=== PATIENT | female | born 1945 | race Caucasian/White ===

== ENCOUNTER 2017-11-13 11:55 | Day surgery (SDC) | payer MEDICARE, BC ==
[2017-11-11 13:47] LABS: BASOPHILS % (AUTO) 0.7 % (0-1); EOSINOPHILS # (AUTO) 0.2 X10'3 (0-0.9); EOSINOPHILS % (AUTO) 2.9 % (0-6); HEMATOCRIT 30.1 % (35.0-45.0); HEMOGLOBIN 10.1 g/dl (12.0-16.0); LYMPHOCYTES # (AUTO) 1.8 X10'3 (1.1-4.8); LYMPHOCYTES % (AUTO) 26.9 % (21-51); MEAN CORPUSCULAR HEMOGLOBIN 33.2 PG (27.0-31.0); MEAN CORPUSCULAR HGB CONC 33.5 % (33.0-36.5); MEAN PLATELET VOLUME 8.4 FL (7.4-10.4); MONOCYTES # (AUTO) 0.5 X10'3 (0-0.9); MONOCYTES % (AUTO) 7.2 % (2-12); NEUTROPHILS # (AUTO) 4.1 X10'3 (1.8-7.7); NEUTROPHILS % (AUTO) 62.3 % (42-75); PLATELET COUNT 257 X10'3 (140-440); RED BLOOD COUNT 3.04 X10'6 (4.20-5.60); RED CELL DISTRIBUTION WIDTH 15.2 % (11.5-14.5); WHITE BLOOD COUNT 6.5 X10'3 (4.5-11.0)
[2017-11-11 13:58] LABS: ALBUMIN 3.8 G/DL (3.4-5.0); ANION GAP 7 (8-16); BLOOD UREA NITROGEN 22 MG/DL (7-18); CHLORIDE 106 MMOL/L (99-107); GLUCOSE 111 MG/DL (70-104); POTASSIUM 3.9 MMOL/L (3.5-5.1); SODIUM 141 MMOL/L (135-145); TOTAL CARBON DIOXIDE 27.8 MMOL/L (24-32); eGFR 55 ML/MIN
[2017-11-11 13:59] LABS: INR 0.9 INR; PARTIAL THROMBOPLASTIN TIME 27 SECONDS (22-32); PROTHROMBIN TIME 9.8 SECONDS (9.0-12.0)
[~2017-11-13] VITALS: Ht 162.6 cm; Wt 65.1 kg
[2017-11-13] VITALS (8 sets, daily range): BP systolic 112–147; BP diastolic 45–60
[~2017-11-13 11:55] MED LIST: ACET650T2 PO; ASPI-1053 PO; ATOR80TA PO; EST1T PO; FERR134T2 PO; FOLI-43 PO; KEN0.1O TP; LISI-600 PO; METH2.5T17 PO; METO25TA6 PO; MULT-920; NAPR220T67 PO; NIFE30TA95 PO; NITR0.4T48 SL; RANO500T3 PO; TICA90TA2 PO
[2017-11-13] MEDS ORDERED: diphenhydrAMINE 25mg capsule PO PRN (12:20)
[2017-11-13] MEDS ORDERED: LORazepam 0.5 MG tablet PO PRN (12:20)
[2017-11-13] MEDS ORDERED: normal saline 1000ml 1,000 ML IV SCH (12:20)
[2017-11-13] MEDS ORDERED: fentaNYL/PF 50MCG/1 ML 2ML syringe ONE (12:28)
[2017-11-13] MEDS ORDERED: iohexol 350MG/ML 100ml bottle IV ONE (12:29)
[2017-11-13] MEDS ORDERED: LIDOcaine 1%/PF (10mg/ml) 5ml vial ONE (12:29)
[2017-11-13] MEDS ORDERED: midazolam 2 mg/2 ml injection ONE (12:29)
[2017-11-13] MEDS ORDERED: FURO-150 PO (12:40)
[2017-11-13] MEDS ORDERED: iohexol 350 MG/ML 50ML vial IV ONE (13:29)
[2017-11-13] MEDS ORDERED: proCHLORperazine 10 MG/2 ml inj IV PRN (14:05)
[2017-11-13] MEDS ORDERED: OXAZEpam 15mg capsule PO PRN (14:05)
[2017-11-13] MEDS ORDERED: HYDROcodone/acetaminophen 5mg/325mg tablet PO PRN (14:05)
[2017-11-13] MEDS ORDERED: ondansetron/PF 4mg/2ml inj IV PRN (14:05)
[2017-11-13] MEDS ORDERED: HYDROcodone/acetaminophen 10/325mg tab PO PRN (14:05)
== END 2017-11-13 16:15 | disposition home or self-care (01) ==
LOC: SSTAY O 11:55
PROVIDERS: ATTEND Internal Medicine Interventional Cardiology
DX: I25.110 Atherosclerotic heart disease of native coronary artery with unstable angina pectoris (principal); I10 Essential (primary) hypertension; I65.23 Occlusion and stenosis of bilateral carotid arteries; M81.0 Age-related osteoporosis without current pathological fracture; M06.9 Rheumatoid arthritis, unspecified; K21.9 Gastro-esophageal reflux disease without esophagitis; E78.5 Hyperlipidemia, unspecified; M19.90 Unspecified osteoarthritis, unspecified site; Z79.82 Long term (current) use of aspirin; Z85.42 Personal history of malignant neoplasm of other parts of uterus; Z86.79 Personal history of other diseases of the circulatory system; Z90.710 Acquired absence of both cervix and uterus; Z98.890 Other specified postprocedural states; Z87.891 Personal history of nicotine dependence; Z90.89 Acquired absence of other organs; Z90.49 Acquired absence of other specified parts of digestive tract; Z72.89 Other problems related to lifestyle; Z95.1 Presence of aortocoronary bypass graft; Z95.5 Presence of coronary angioplasty implant and graft; Z88.0 Allergy status to penicillin; Z88.6 Allergy status to analgesic agent; Z79.899 Other long term (current) drug therapy
CPT/HCPCS: 36415; 80048; 85025; 85610; 85730; 93005; 93459; 99152; 99153; A6257; C1769; J1644; J2001; J2250; J3010; J7030; Q0163; Q9967; A4620

== ENCOUNTER 2018-09-08 10:55 | Outpatient (CLI) | payer MEDICARE, BC ==
[~2018-09-08 10:55] MED LIST changes: -FERR134T2 PO; +FURO-150 PO; -RANO500T3 PO; -TICA90TA2 PO
== END 2018-09-08 23:59 | disposition home or self-care (01) ==
LOC: VAS 10:55
PROVIDERS: ATTEND Surgery
DX: Z01.810 Encounter for preprocedural cardiovascular examination (principal); I10 Essential (primary) hypertension; Z95.1 Presence of aortocoronary bypass graft; Z98.61 Coronary angioplasty status; Z90.710 Acquired absence of both cervix and uterus; Z79.82 Long term (current) use of aspirin; Z87.891 Personal history of nicotine dependence
CPT/HCPCS: 93970

== ENCOUNTER 2019-09-14 14:07 | Day surgery (SDC) | payer MEDICARE, BC ==
[~2019-09-14] VITALS: Ht 162.6 cm; Wt 62.4 kg
[2019-09-14] MEDS ORDERED: diphenhydrAMINE 25mg capsule PO PRN (14:40)
[2019-09-14] MEDS ORDERED: normal saline 1,000 ML IV SCH (14:40)
[2019-09-14] MEDS ORDERED: LORazepam 0.5 MG tablet PO PRN (14:40)
[2019-09-14] MEDS ORDERED: ISOS60TA4 PO (14:53)
[2019-09-14 15:00] VITALS: BP 141/63
[2019-09-14 15:26] LABS: BASOPHILS # (AUTO) 0.1 X10'3 (0-0.2); BASOPHILS % (AUTO) 0.9 % (0-1); EOSINOPHILS # (AUTO) 0.2 X10'3 (0-0.9); EOSINOPHILS % (AUTO) 2.5 % (0-6); HEMATOCRIT 34.4 % (35.0-45.0); HEMOGLOBIN 11.7 g/dl (12.0-16.0); LYMPHOCYTES # (AUTO) 2.3 X10'3 (1.1-4.8); LYMPHOCYTES % (AUTO) 32.5 % (21-51); MEAN CORPUSCULAR HEMOGLOBIN 34.3 PG (27.0-31.0); MEAN CORPUSCULAR VOLUME 100.9 FL (78-98); MEAN PLATELET VOLUME 8.1 FL (7.4-10.4); MONOCYTES # (AUTO) 0.6 X10'3 (0-0.9); MONOCYTES % (AUTO) 7.8 % (2-12); NEUTROPHILS % (AUTO) 56.3 % (42-75); PLATELET COUNT 275 X10'3 (140-440); RED BLOOD COUNT 3.41 X10'6 (4.20-5.60); RED CELL DISTRIBUTION WIDTH 12.5 % (11.5-14.5); WHITE BLOOD COUNT 7.1 X10'3 (4.5-11.0)
[2019-09-14 15:32] LABS: ALBUMIN 3.9 G/DL (3.4-5.0); ANION GAP 8 (8-16); BLOOD UREA NITROGEN 18 MG/DL (7-18); BUN/CREATININE RATIO 18.6 (6.6-38.0); CALCIUM 9.4 MG/DL (8.5-10.1); CHLORIDE 101 MMOL/L (99-107); CREATININE 0.97 MG/DL (0.40-0.90); GLUCOSE 94 MG/DL (70-104); POTASSIUM 4.2 MMOL/L (3.5-5.1); SODIUM 135 MMOL/L (135-145); TOTAL CARBON DIOXIDE 26.3 MMOL/L (24-32); eGFR 56 ML/MIN
[2019-09-14 15:42] LABS: PARTIAL THROMBOPLASTIN TIME 28 SECONDS (22-32)
[2019-09-14] MEDS ORDERED: iohexol 350MG/ML 100ml bottle IV ONE ×2 (17:23→18:14)
[2019-09-14] MEDS ORDERED: LIDOcaine 1% (10mg/ml)w/preservative injection 20ml MDV ONE (17:23)
[2019-09-14] MEDS ORDERED: fentaNYL/PF 50MCG/1 ML 2ML syringe ONE (17:59)
[2019-09-14] MEDS ORDERED: midazolam 2 mg/2 ml injection ONE (17:59)
[2019-09-14] MEDS ORDERED: nitroGLYCERIN 0.4mg SUBLingual tab SL ONE (18:10)
[2019-09-14] MEDS ORDERED: heparin 1,000unit/ml 10ml vial 10 ML ONE (18:29)
[2019-09-14 19:21] VITALS: BP 160/86
[2019-09-14 19:30] VITALS: BP 167/83
[2019-09-14 19:45] VITALS: BP 173/87
[2019-09-14] MEDS ORDERED: proCHLORperazine 10 MG/2 ml inj IV PRN (19:55)
[2019-09-14] MEDS ORDERED: ondansetron/PF 4mg/2ml inj IV PRN (19:55)
[2019-09-14] MEDS ORDERED: HYDROcodone/acetaminophen 5mg/325mg tablet PO PRN (19:55)
[2019-09-14] MEDS ORDERED: OXAZEpam 15mg capsule PO PRN (19:55)
[2019-09-14] MEDS ORDERED: nitroGLYCERIN 0.4mg SUBLingual tab SL PRN (19:55)
[2019-09-14] MEDS ORDERED: HYDROcodone/acetaminophen 10/325mg tab PO PRN (19:55)
[2019-09-14 20:00] VITALS: BP 161/83
== END 2019-09-14 20:45 | disposition home or self-care (01) ==
LOC: SSTAY O 14:07
PROVIDERS: ATTEND Internal Medicine Interventional Cardiology
DX: I25.110 Atherosclerotic heart disease of native coronary artery with unstable angina pectoris (principal); I10 Essential (primary) hypertension; M06.9 Rheumatoid arthritis, unspecified; D64.9 Anemia, unspecified; Z79.82 Long term (current) use of aspirin; Z79.899 Other long term (current) drug therapy; Z85.42 Personal history of malignant neoplasm of other parts of uterus; Z88.8 Allergy status to other drugs, medicaments and biological substances; Z88.0 Allergy status to penicillin; Z88.5 Allergy status to narcotic agent; E78.5 Hyperlipidemia, unspecified; Z87.891 Personal history of nicotine dependence; Z95.1 Presence of aortocoronary bypass graft; Z79.01 Long term (current) use of anticoagulants
CPT/HCPCS: 36415; 80048; 85025; 85610; 85730; 93005; 93459; 99152; 99153; C1769; J1644; J2001; J2250; J3010; J7030; Q0163; Q9967; A4620; A6258; C1760

== ENCOUNTER 2024-10-11 08:14 | Inpatient (IN) | payer MEDICARE, OTHER ==
[~2024-10-11] VITALS: Ht 160 cm; Wt 51.9 kg
[2024-10-11] VITALS (34 sets, daily range): BP systolic 58–115; BP diastolic 25–77; PULSE 66–131; RESP 10–22; O2SAT 91–100
[~2024-10-11 08:14] MED LIST changes: -ASPI-1053 PO; +ATOR-429 PO; -ATOR80TA PO; +CLOB15OI21 TOP; -EST1T PO; -FOLI-43 PO; +FOLI1TAB27 PO; -FURO-150 PO; +ISOS60TA71 PO; -KEN0.1O TP; -LISI-600 PO; +LOP25T PO; -METH2.5T17 PO; -METO25TA6 PO; -MULT-920; +MULT-920 PO; -NAPR220T67 PO; -NIFE30TA95 PO
[2024-10-11] MEDS ORDERED: PHENYLephrine 10mg/ml 5ml injection IV ONE (10:05)
[2024-10-11] MEDS ORDERED: propofol inj 20 ML IV ONE ×2 (10:40)
[2024-10-11] MEDS ORDERED: nitroGLYCERIN 0.4mg/hour patch TD ONE (10:54)
[2024-10-11] MEDS ORDERED: ePHEDrine 50MG/ML INJ. ONE (10:55)
[2024-10-11] MEDS ORDERED: nitroGLYCERIN 0.4mg SUBLingual tab SL PRN (11:00)
[2024-10-11] MEDS ORDERED: nitroGLYCERIN 0.4mg SUBLingual tab SL ONE (11:03)
[2024-10-11] MEDS ORDERED: simethicone 40mg/0.6ml oral drops 30ml ONE (11:19)
[2024-10-11] MEDS ORDERED: morphine 4 MG/ML inj SYRINge ONE (11:25)
[2024-10-11] MEDS ORDERED: midazolam 1 mg/ML 2ml injection ONE (11:58)
[2024-10-11 12:02] LABS: BASOPHILS % (AUTO) 0.1 % (0-1); EOSINOPHILS # (AUTO) 0.1 X10'3 (0-0.9); EOSINOPHILS % (AUTO) 0.5 % (0-6); HEMATOCRIT 27.3 % (35.0-45.0); HEMOGLOBIN 9.1 g/dl (12.0-16.0); LYMPHOCYTES % (AUTO) 21.8 % (21-51); MEAN CORPUSCULAR HEMOGLOBIN 34.7 PG (27.0-31.0); MEAN CORPUSCULAR HGB CONC 33.2 g/dL (33.0-36.5); MEAN CORPUSCULAR VOLUME 104.3 FL (78-98); MEAN PLATELET VOLUME 8.7 FL (7.4-10.4); MONOCYTES # (AUTO) 0.8 X10'3 (0-0.9); NEUTROPHILS # (AUTO) 9.7 X10'3 (1.8-7.7); NEUTROPHILS % (AUTO) 71.6 % (42-75); PLATELET COUNT 179 X10'3 (140-440); RED BLOOD COUNT 2.61 X10'6 (4.20-5.60); RED CELL DISTRIBUTION WIDTH 14.4 % (11.5-14.5); WHITE BLOOD COUNT 13.6 X10'3 (4.5-11.0)
[2024-10-11 12:05] LABS: APTT 32 SECONDS (22-32); INR 1.1 INR; PROTHROMBIN TIME 11.1 SECONDS (9.0-12.0)
[2024-10-11 12:07] LABS: ALANINE AMINOTRANSFERASE 22 U/L (12-78); ALBUMIN 3.3 G/DL (3.4-5.0); ALBUMIN/GLOBULIN RATIO 1.1 (1.1-1.5); ALKALINE PHOSPHATASE 58 IU/L (46-116); ANION GAP 13 (8-16); ASPARTATE AMINO TRANSFERASE 26 U/L (10-37); BILIRUBIN,TOTAL 0.5 MG/DL (0.1-1.0); BLOOD UREA NITROGEN 26 MG/DL (7-18); BUN/CREATININE RATIO 21.3 (10.0-20.0); CALCIUM 8.3 MG/DL (8.5-10.1); CHLORIDE 106 MMOL/L (99-107); CREATININE 1.22 MG/DL (0.40-0.90); GLUCOSE 100 MG/DL (70-104); POTASSIUM 3.2 MMOL/L (3.5-5.1); SODIUM 138 MMOL/L (135-145); TOTAL CARBON DIOXIDE 19.4 MMOL/L (24-32); TOTAL PROTEIN 6.2 G/DL (6.4-8.2); eCRCL 30 ML/MIN; eGFR 43 ML/MIN
[2024-10-11] MEDS: aspirin 325mg tablet PO ONE (12:15)
[2024-10-11] MEDS ORDERED: morphine 2 MG/ML inj. syringe IV ONE (12:25)
[2024-10-11] MEDS: morphine 2 MG/ML inj. syringe IV PRN ×2 (12:31→20:04)
[2024-10-11] MEDS ORDERED: acetaminophen 325mg tablet PO PRN (13:40)
[2024-10-11] MEDS ORDERED: ondansetron/PF 4mg/2ml inj IV PRN (13:40)
[2024-10-11] MEDS ORDERED: normal saline 1000ml 1,000 ML IV SCH (13:40)
[2024-10-11] MEDS ORDERED: magnesium hydroxide 30ml (MOM) UD suspension PO PRN (13:40)
[2024-10-11] MEDS ORDERED: morphine 4 MG/ML inj SYRINge IV PRN (13:40)
[2024-10-11] MEDS: ringers solution, lacted 1,000 ML IV SCH (14:18)
[2024-10-11] MEDS: nitroGLYCERIN-Tridil 50MG/D5W 250 ML IV PRN (14:20)
[2024-10-11] MEDS: heparin 10,000 units/1 ML INJ IV ONE (14:24)
[2024-10-11] MEDS: MESSAGE TO NURSING IV ONE (14:25)
[2024-10-11] MEDS: heparin 25,000 UNIT/250ml bag 250 ML IV PRN (14:30)
[2024-10-11] MEDS: ringers solution, lacted 1,000 ML IV ONE (15:02)
[2024-10-11] MEDS ORDERED: ISOS30TA84 PO ×2 (15:23→20:11)
[2024-10-11] MEDS ORDERED: METO50TA16 PO (15:23)
[2024-10-11] MEDS ORDERED: EZET10TA48 PO (15:23)
[2024-10-11] MEDS ORDERED: AMLODIPINE PO (15:27)
[2024-10-11] MEDS ORDERED: BENAZEPRIL PO (15:27)
[2024-10-11] MEDS: nitroGLYCERIN 0.4mg SUBLingual tab SL PRN (18:08)
[2024-10-11] MEDS ORDERED: nitroGLYCERIN-Tridil 50MG/D5W 250 ML IV PRN (18:38)
[2024-10-11] MEDS: normal saline 1000ml 1,000 ML IV ONE (18:38)
[2024-10-11] MEDS: atorvastatin 20mg tablet PO SCH (21:30)
[2024-10-11] MEDS ORDERED: magnesium sulf-water 4G/100mL 100 ML IV PRN (22:35)
[2024-10-11] MEDS ORDERED: magnesium sulf-water 2g/50mL 50 ML IV PRN (22:35)
[2024-10-11] MEDS ORDERED: potassium Cl 20 mEq SR tablet PO PRN ×2 (22:35)
[2024-10-12] VITALS (32 sets, daily range): BP systolic 99–122; BP diastolic 39–60; PULSE 79–103; RESP 16–35; O2SAT 88–94
[2024-10-12 02:46] LABS: BASOPHILS % (AUTO) 0.1 % (0-1); EOSINOPHILS % (AUTO) 0.1 % (0-6); HEMATOCRIT 27.2 % (35.0-45.0); HEMOGLOBIN 9.2 g/dl (12.0-16.0); LYMPHOCYTES # (AUTO) 1.4 X10'3 (1.1-4.8); LYMPHOCYTES % (AUTO) 13.4 % (21-51); MEAN CORPUSCULAR HEMOGLOBIN 35.6 PG (27.0-31.0); MEAN CORPUSCULAR HGB CONC 33.7 g/dL (33.0-36.5); MEAN CORPUSCULAR VOLUME 105.5 FL (78-98); MEAN PLATELET VOLUME 8.5 FL (7.4-10.4); MONOCYTES # (AUTO) 0.6 X10'3 (0-0.9); MONOCYTES % (AUTO) 5.4 % (2-12); NEUTROPHILS # (AUTO) 8.6 X10'3 (1.8-7.7); PLATELET COUNT 173 X10'3 (140-440); RED BLOOD COUNT 2.57 X10'6 (4.20-5.60); RED CELL DISTRIBUTION WIDTH 14.1 % (11.5-14.5); WHITE BLOOD COUNT 10.6 X10'3 (4.5-11.0)
[2024-10-12 03:09] LABS: ALBUMIN 3.1 G/DL (3.4-5.0); ANION GAP 15 (8-16); BLOOD UREA NITROGEN 18 MG/DL (7-18); CHLORIDE 107 MMOL/L (99-107); CREATININE 0.82 MG/DL (0.40-0.90); GLUCOSE 81 MG/DL (70-104); POTASSIUM 3.7 MMOL/L (3.5-5.1); SODIUM 140 MMOL/L (135-145); TOTAL CARBON DIOXIDE 17.7 MMOL/L (24-32); eCRCL 45 ML/MIN; eGFR 67 ML/MIN
[2024-10-12] MEDS: heparin 10,000 units/1 ML INJ IV PRN (03:24)
[2024-10-12] MEDS: MESSAGE TO NURSING IV ONE ×5 (04:15→23:46)
[2024-10-12] MEDS: ezetimibe 10mg tablet PO SCH (07:58)
[2024-10-12] MEDS: K and/or MAG REPLACEMENT MC SCH (08:00)
[2024-10-12] MEDS: aspirin 325mg tablet, delayed-release (Ecotrin) PO SCH (09:46)
[2024-10-12] MEDS: furosemide 40mg/4ml inj IV ONE (10:50)
[2024-10-12] MEDS: pantoprazole 40 MG vial IV SCH (11:02)
[2024-10-12] MEDS: metoprolol tartrate 25mg tablet PO SCH (13:23)
[2024-10-12] MEDS: furosemide 40mg/4ml inj IV SCH (14:18)
[2024-10-12 18:47] LABS: PRO BRAIN NATRIURETIC PEPTIDE 27307 PG/ML (0-450)
[2024-10-12] MEDS: metoprolol tartrate 50mg tablet PO SCH (20:03)
[2024-10-12 20:53] LABS: ABG BASE EXCESS -7.1 mmol/L (-2.0-3.0); ABG OXYGEN SATURATION 90.4 % (94.0-98.0); ABG PCO2 (T) 21.8 mmHg (32.0-45.0); ABG PH (T) 7.459 (7.350-7.450); ALLEN'S TEST Modified; FCOHb 0.3 % (0.5-1.5); FHHb 9.5 % (0.0-5.0); FLOW 30 L/min; FMetHb 0.3 % (0.0-1.5); FO2Hb 89.9 % (94.0-98.0); MODE Vapotherm; PATIENT TEMPERATURE 37.5; TOTAL HEMOGLOBIN 9.9 G/dl (12.0-16.0)
[2024-10-13] VITALS (30 sets, daily range): BP systolic 93–126; BP diastolic 42–64; PULSE 76–99; RESP 24–41; O2SAT 89–99
[2024-10-13 04:26] LABS: BASOPHILS % (AUTO) 0.1 % (0-1); EOSINOPHILS % (AUTO) 0 % (0-6); HEMATOCRIT 26.6 % (35.0-45.0); LYMPHOCYTES # (AUTO) 1.1 X10'3 (1.1-4.8); LYMPHOCYTES % (AUTO) 8.4 % (21-51); MEAN CORPUSCULAR HEMOGLOBIN 34.9 PG (27.0-31.0); MEAN CORPUSCULAR HGB CONC 33.9 g/dL (33.0-36.5); MEAN PLATELET VOLUME 8.5 FL (7.4-10.4); MONOCYTES # (AUTO) 0.8 X10'3 (0-0.9); MONOCYTES % (AUTO) 6.1 % (2-12); NEUTROPHILS # (AUTO) 11.2 X10'3 (1.8-7.7); NEUTROPHILS % (AUTO) 85.4 % (42-75); PLATELET COUNT 186 X10'3 (140-440); RED BLOOD COUNT 2.58 X10'6 (4.20-5.60); RED CELL DISTRIBUTION WIDTH 13.9 % (11.5-14.5); WHITE BLOOD COUNT 13.2 X10'3 (4.5-11.0)
[2024-10-13 04:42] LABS: ALBUMIN 2.5 G/DL (3.4-5.0); ANION GAP 13 (8-16); BLOOD UREA NITROGEN 14 MG/DL (7-18); BUN/CREATININE RATIO 14.4 (10.0-20.0); CALCIUM 7.8 MG/DL (8.5-10.1); CHLORIDE 106 MMOL/L (99-107); CREATININE 0.97 MG/DL (0.40-0.90); GLUCOSE 109 MG/DL (70-104); MAGNESIUM 1.7 MG/DL (1.5-2.4); SODIUM 142 MMOL/L (135-145); TOTAL CARBON DIOXIDE 23.4 MMOL/L (24-32); eCRCL 39 ML/MIN; eGFR 56 ML/MIN
[2024-10-13 04:53] LABS: POTASSIUM 2.9 MMOL/L (3.5-5.1)
[2024-10-13] MEDS: MESSAGE TO NURSING IV ONE ×2 (05:24→12:30)
[2024-10-13] MEDS: potassium Cl 40MEQ/1/2NS 520ml 520 ML IV PRN (05:46)
[2024-10-13] MEDS: ALPRAZolam 0.25mg tablet PO PRN (11:23)
[2024-10-13] MEDS: potassium Cl 20 mEq SR tablet PO SCH (11:23)
[2024-10-13] MEDS: lactose-reduced food (Ensure Enlive) - 237ml bottle PO SCH (13:00)
[2024-10-13] MEDS: metoprolol tartrate 50mg tablet PO SCH (14:00)
[2024-10-13] MEDS: furosemide 40mg/4ml inj IV SCH (14:00)
[2024-10-13] MEDS: mag hydrox/Alum hydrox/simeth 30ml oral suspension PO PRN (15:49)
[2024-10-13] MEDS: enoxaparin 40mg/0.4ml syringe SUBCUT SCH (20:02)
[2024-10-14] VITALS (30 sets, daily range): BP systolic 13–140; BP diastolic 43–62; PULSE 73–84; RESP 17–35; O2SAT 91–100
[2024-10-14 03:52] LABS: BASOPHILS % (AUTO) 0.1 % (0-1); EOSINOPHILS % (AUTO) 0 % (0-6); HEMATOCRIT 28.3 % (35.0-45.0); HEMOGLOBIN 9.6 g/dl (12.0-16.0); LYMPHOCYTES # (AUTO) 1.4 X10'3 (1.1-4.8); LYMPHOCYTES % (AUTO) 10.5 % (21-51); MEAN CORPUSCULAR HEMOGLOBIN 35.3 PG (27.0-31.0); MEAN CORPUSCULAR VOLUME 103.9 FL (78-98); MEAN PLATELET VOLUME 8.5 FL (7.4-10.4); MONOCYTES % (AUTO) 7.4 % (2-12); NEUTROPHILS # (AUTO) 11.3 X10'3 (1.8-7.7); PLATELET COUNT 193 X10'3 (140-440); RED BLOOD COUNT 2.72 X10'6 (4.20-5.60); RED CELL DISTRIBUTION WIDTH 14.2 % (11.5-14.5); WHITE BLOOD COUNT 13.8 X10'3 (4.5-11.0)
[2024-10-14 04:00] LABS: ALBUMIN 2.4 G/DL (3.4-5.0); ANION GAP 4 (8-16); BLOOD UREA NITROGEN 17 MG/DL (7-18); CHLORIDE 108 MMOL/L (99-107); CREATININE 1.06 MG/DL (0.40-0.90); GLUCOSE 113 MG/DL (70-104); MAGNESIUM 2.1 MG/DL (1.5-2.4); POTASSIUM 4.9 MMOL/L (3.5-5.1); SODIUM 139 MMOL/L (135-145); TOTAL CARBON DIOXIDE 27.2 MMOL/L (24-32); eCRCL 36 ML/MIN; eGFR 50 ML/MIN
[2024-10-14 07:50] LABS: PRO BRAIN NATRIURETIC PEPTIDE 21857 PG/ML (0-450)
[2024-10-14 08:55] LABS: ABG HCO3 20.5 mmol/L (21.0-28.0); ABG OXYGEN SATURATION 99.2 % (94.0-98.0); ABG PCO2 (T) 27.8 mmHg (32.0-45.0); ABG PH (T) 7.485 (7.350-7.450); ABG PO2 (T) 167.7 mmHg (83.0-108.0); ALLEN'S TEST POSITIVE; FCOHb 0.3 % (0.5-1.5); FHHb 0.8 % (0.0-5.0); FMetHb 0.3 % (0.0-1.5); FO2Hb 98.6 % (94.0-98.0); MODE MASK - BIPAP; PATIENT TEMPERATURE 37.1; RESPIRATORY RATE 8 b/min; TOTAL HEMOGLOBIN 10.5 G/dl (12.0-16.0)
[2024-10-14 10:36] LABS: CHOLESTEROL 119 MG/DL (0-200); HDL CHOLESTEROL 59 MG/DL (35-60); LDL CHOLESTEROL 43 MG/DL (50-100); TRIGLYCERIDES 66 MG/DL (20-135)
[2024-10-14] MEDS ORDERED: cefepime 1GM/NS ADD-VANTAGE 100 ML IV SCH (16:00)
[2024-10-14] MEDS: levoFLOXACIN-Levaquin 750MG/D5 150 ML IV SCH (20:39)
[2024-10-15] VITALS (31 sets, daily range): BP systolic 98–145; BP diastolic 40–74; PULSE 69–85; RESP 12–35; O2SAT 91–99
[2024-10-15] MEDS: acetaminophen 325mg tablet PO PRN (00:13)
[2024-10-15] MEDS: cefepime 1GM in D5W 50mL 50 ML IV SCH (00:14)
[2024-10-15 06:25] LABS: ALBUMIN 2.3 G/DL (3.4-5.0); ANION GAP 8 (8-16); BLOOD UREA NITROGEN 26 MG/DL (7-18); BUN/CREATININE RATIO 23.4 (10.0-20.0); CALCIUM 8.8 MG/DL (8.5-10.1); CHLORIDE 105 MMOL/L (99-107); CREATININE 1.11 MG/DL (0.40-0.90); GLUCOSE 99 MG/DL (70-104); MAGNESIUM 2.1 MG/DL (1.5-2.4); POTASSIUM 4.6 MMOL/L (3.5-5.1); SODIUM 137 MMOL/L (135-145); TOTAL CARBON DIOXIDE 24.2 MMOL/L (24-32); eCRCL 34 ML/MIN; eGFR 48 ML/MIN
[2024-10-15 06:32] LABS: BASOPHILS % (AUTO) 0.2 % (0-1); EOSINOPHILS # (AUTO) 0.1 X10'3 (0-0.9); EOSINOPHILS % (AUTO) 0.8 % (0-6); HEMATOCRIT 28.5 % (35.0-45.0); HEMOGLOBIN 9.8 g/dl (12.0-16.0); LYMPHOCYTES # (AUTO) 1.5 X10'3 (1.1-4.8); LYMPHOCYTES % (AUTO) 12.9 % (21-51); MEAN CORPUSCULAR HEMOGLOBIN 35.2 PG (27.0-31.0); MEAN CORPUSCULAR HGB CONC 34.3 g/dL (33.0-36.5); MEAN CORPUSCULAR VOLUME 102.6 FL (78-98); MEAN PLATELET VOLUME 9.4 FL (7.4-10.4); MONOCYTES % (AUTO) 8.9 % (2-12); NEUTROPHILS # (AUTO) 8.7 X10'3 (1.8-7.7); NEUTROPHILS % (AUTO) 77.2 % (42-75); PLATELET COUNT 229 X10'3 (140-440); RED BLOOD COUNT 2.78 X10'6 (4.20-5.60); RED CELL DISTRIBUTION WIDTH 14.1 % (11.5-14.5); WHITE BLOOD COUNT 11.3 X10'3 (4.5-11.0)
[2024-10-15] MEDS: enoxaparin 40mg/0.4ml syringe SUBCUT SCH (08:36)
[2024-10-16] VITALS (9 sets, daily range): BP systolic 109–138; BP diastolic 55–72; PULSE 72–86; RESP 11–28; TEMP 97.4–98.6; O2SAT 92–97
[2024-10-16 07:37] LABS: BASOPHILS % (AUTO) 0.6 % (0-1); EOSINOPHILS # (AUTO) 0.1 X10'3 (0-0.9); EOSINOPHILS % (AUTO) 1.7 % (0-6); HEMATOCRIT 30.4 % (35.0-45.0); HEMOGLOBIN 10.5 g/dl (12.0-16.0); LYMPHOCYTES # (AUTO) 1.5 X10'3 (1.1-4.8); LYMPHOCYTES % (AUTO) 16.8 % (21-51); MEAN CORPUSCULAR HEMOGLOBIN 35.2 PG (27.0-31.0); MEAN CORPUSCULAR HGB CONC 34.4 g/dL (33.0-36.5); MEAN CORPUSCULAR VOLUME 102.3 FL (78-98); MEAN PLATELET VOLUME 8.4 FL (7.4-10.4); MONOCYTES # (AUTO) 0.8 X10'3 (0-0.9); NEUTROPHILS # (AUTO) 6.3 X10'3 (1.8-7.7); NEUTROPHILS % (AUTO) 71.9 % (42-75); PLATELET COUNT 286 X10'3 (140-440); RED BLOOD COUNT 2.97 X10'6 (4.20-5.60); WHITE BLOOD COUNT 8.8 X10'3 (4.5-11.0)
[2024-10-16 08:02] LABS: ALBUMIN 2.6 G/DL (3.4-5.0); ANION GAP 9 (8-16); BLOOD UREA NITROGEN 30 MG/DL (7-18); CHLORIDE 106 MMOL/L (99-107); GLUCOSE 100 MG/DL (70-104); MAGNESIUM 2.2 MG/DL (1.5-2.4); POTASSIUM 4.8 MMOL/L (3.5-5.1); SODIUM 140 MMOL/L (135-145); TOTAL CARBON DIOXIDE 24.8 MMOL/L (24-32); eCRCL 25 ML/MIN; eGFR 34 ML/MIN
[2024-10-16] MEDS ORDERED: ASPI-1071 PO (11:43)
[2024-10-16] MEDS ORDERED: METO50TA16 PO (11:43)
[2024-10-16] MEDS ORDERED: CEFD300C3 PO (11:43)
[2024-10-16] MEDS ORDERED: furosemide 40mg/4ml inj IV SCH (20:00)
== END 2024-10-16 13:33 | disposition home or self-care (01) | DRG 871 ==
LOC: GI LAB 08:14 → CICU 2S 12:17 → GI LAB 13:44 → CICU 2S 13:45 → PCU 3S 10-16 04:09
PROVIDERS: ADMIT Internal Medicine Critical Care Medicine; ATTEND Internal Medicine Gastroenterology
PROC: 0DB78ZX Excision of Stomach, Pylorus, Via Natural or Artificial Opening Endoscopic, Diagnostic (ICD-10-PCS; 2024-10-11)
PROC: 0DBE8ZX Excision of Large Intestine, Via Natural or Artificial Opening Endoscopic, Diagnostic (ICD-10-PCS; 2024-10-11)
PROC: 5A2204Z Restoration of Cardiac Rhythm, Single (ICD-10-PCS; principal; 2024-10-11 10:05)
DX: A41.9 Sepsis, unspecified organism (principal); I21.4 Non-ST elevation (NSTEMI) myocardial infarction; I50.33 Acute on chronic diastolic (congestive) heart failure; J15.9 Unspecified bacterial pneumonia; J96.01 Acute respiratory failure with hypoxia; N17.0 Acute kidney failure with tubular necrosis; R65.21 Severe sepsis with septic shock; J44.0 Chronic obstructive pulmonary disease with (acute) lower respiratory infection; Z66 Do not resuscitate; I25.10 Atherosclerotic heart disease of native coronary artery without angina pectoris; I95.9 Hypotension, unspecified; M06.9 Rheumatoid arthritis, unspecified; I48.0 Paroxysmal atrial fibrillation; D64.9 Anemia, unspecified; D69.6 Thrombocytopenia, unspecified; E78.5 Hyperlipidemia, unspecified; E87.6 Hypokalemia; I11.0 Hypertensive heart disease with heart failure; I49.3 Ventricular premature depolarization; I73.9 Peripheral vascular disease, unspecified; Z95.5 Presence of coronary angioplasty implant and graft; I25.2 Old myocardial infarction; Z88.0 Allergy status to penicillin; Z88.5 Allergy status to narcotic agent; Z79.899 Other long term (current) drug therapy; Z87.891 Personal history of nicotine dependence; Z95.1 Presence of aortocoronary bypass graft
CPT/HCPCS: 36415; 36600; 43239; 45380; 71045; 80048; 80053; 80061; 82803; 83735; 83880; 84145; 84484; 85018; 85025; 85610; 85730; 88305; 92960; 93005; 93306; 94660; 94760; 97116; 97161; 97530; A4615; A4620; A6258; G0378; J0692; J1644; J1650; J1940; J1956; J2250; J2270; J2371; J2470; J2704; J3480; J3490; J7030; J7040; J7120